=== PATIENT | female | born 1980 | race Caucasian/White ===

== ENCOUNTER 2020-09-09 13:06 | Emergency (ER) | payer MEDICAID ==
[~2020-09-09] VITALS: Ht 149.9 cm; Wt 51.7 kg
[2020-09-09 13:15] VITALS: BP 125/80; Ht 149.9 cm; Wt 51.7 kg
[2020-09-09] MEDS ORDERED: GLYCERIN1 EAC1 RC (14:10)
[2020-09-09] MEDS ORDERED: MAPAP325 MG PO (14:10)
[2020-09-09] MEDS ORDERED: MAGL PO (14:10)
== END 2020-09-09 14:17 | disposition home or self-care (01) ==
LOC: ED 13:06
DX: O26.891 Other specified pregnancy related conditions, first trimester (principal); K59.00 Constipation, unspecified; Z3A.10 10 weeks gestation of pregnancy; Z88.0 Allergy status to penicillin